=== PATIENT | male | born 1995 | race Caucasian/White ===

== ENCOUNTER → 2017-08-20 | Day surgery (SDC) | payer BC ==
[~2017-08-20] VITALS: Ht 170.2 cm; Wt 57.0 kg
[~2017-08-20] MED LIST: AMPICILLIN/SULBAC 3 GM/NS 100 ML IV PRN; BACITRACIN TOP OINT 15 GM TUBE ONE; CHLORHEXIDINE GLUCONATE 2 % 1 PACK (2 CLOTHS) TOPICAL PRN; DEXAMETHASONE SOD PHOS 4 MG/ML VIAL ONE; FAMOTIDINE 20 MG/2 ML VIAL ONE; INSULIN HUMAN REGULAR 1,000 UNITS/10 ML VIAL SQ PRN; LACTATED RINGER'S 1000 ML INJ 1,000 ML IV ONE; LACTATED RINGER'S 1000 ML IV PRN; LIDOCAINE 0.5%/EPINEPHrine 1:200,000 SOLN 50 ML VIAL ONE; MEPERIDINE HCL 25 MG/ML VIAL ONE; METOPROLOL TARTRATE 25 MG TAB PO PRN; MICROFIBRILLAR COLLAGEN HEMOSTAT 1 GM PKT ONE; MIDAZOLAM HCL 2 MG/2 ML VIAL ONE; MORPHINE SULFATE 4 MG/ML INJ ONE; OXYMETAZOLINE HCL 0.05% 15 ML NASAL SPRAY ONE; POVIDONE IODINE 5% (ANTISEPSIS KIT) 4 APPLICATIONS EACH NARE PRN; PROPOFOL 200 MG/20 ML AMP IV ONE; ROCURONIUM INJ 50 MG/5 ML SYRINGE IV PUSH ONE; SODIUM CHLORID 0.9% 500 ML IV PRN; SUGAMMADEX SODIUM 200 MG/2 ML VIAL IV PUSH ONE; fentaNYL CITRATE 250 MCG/5 ML AMP ONE
[2017-08-20 09:45] VITALS: PULSE 83
[2017-08-20 11:35] VITALS: BP 139/77; PULSE 74; RESP 16; TEMP 98; O2SAT 98
--- NOTE | 2017-08-30 11:49 | MP ---
cc: FRANCISCO JAVIER HERNANDEZ M.D. DATE OF SURGERY: 08/20/[address] Francisco Javier Hernandez. PREOPERATIVE DIAGNOSIS 1. Adenotonsillar hypertrophy. 2. Chronic tonsillitis. 3. Nasal airway obstruction. 4. Nasal septal deviation. 5. Hypertrophy of inferior turbinates. POSTOPERATIVE DIAGNOSIS 1. Adenotonsillar hypertrophy. 2. Chronic tonsillitis. 3. Nasal airway obstruction. 4. Nasal septal deviation. 5. Hypertrophy of inferior turbinates. OPERATION PERFORMED 1. Open repair nasal septal fracture. 2. Bilateral submucosal resection of inferior turbinates. 3. Adenotonsillectomy. INDICATIONS The indications are documented in the history and physical. DESCRIPTION OF OPERATION The patient was taken to OR #2 and placed in the supine position. Following induction of general anesthesia and intubation the nose was packed bilaterally with cotton pledgets saturated in 0.05% oxymetazoline. The nasal septum and inferior turbinates were injected with a total of 10 mL of 1% Xylocaine with epinephrine 1:100,000. He was then prepped and draped for surgery. The nasal packing was removed and a hemitransfixion incision was made in the left nasal vestibule. Through this incision the mucosa of septum was elevated bilaterally as far as the junction of the bony cartilaginous septum. This revealed the quadrangular cartilage which showed evidence of old long healed nasal septal fracture. There was extreme deviation of septum bilaterally due to comminuted fracture segments. A cumulative area of 2 x 2.5 was removed from the quadrangular cartilage preserving 1.5 cm dorsal and caudal cartilaginous struts. The mucosa was then elevated from the bony septum and the maxillary crest and these were removed using Mariel forceps and a 6 mm [place] chisel. The incision was then closed using a running suture of 4-0 chromic and the mucosal layers of septum were approximated to each other with a quilting stitch of 4-0 plain gut. The inferior turbinates were then fractured out medially and stab incisions were opened along their inferior surfaces and through these incisions the submucosal soft tissue was reduced using a curet and preserving the conchal bone. The incisions were then cauterized using suction Bovie at 35 brown. The remnants of the inferior turbinates were then re-lateralized to the lateral nasal wall. The nose was packed with 5.5 cm Rapid Rhino packs and each one was inflated with 5 mL of air. The table was then turned 90 degrees and a shoulder roll and a McIvor mouth gag were put in place. There was observed extreme hypertrophy of grossly inflamed and sclerotic tonsils. These were removed using the ArthroCare Coblator technique. Numerous sites of venous and arterial bleeding were cauterized using the bipolar cautery and the monopolar cautery. The tonsillar fossa were packed for about five minutes using tonsil sponge packs saturated in oxymetazoline. When these were removed the tonsil fossa were then filled with Avitene microfibrils. The adenoids were removed using the suction Bovie at 45 brown. The stomach was aspirated of several cc's of cloudy gastric contents using a #18 Peebles sump NG tube, and when this was completed the mouth gag was removed and the procedure was terminated. The patient was reversed from anesthesia and taken to Recovery in good condition. There were no complications. Blood loss was 100 mL. MD JORJE Brady/NIMESH /7:32 AM /11:35 AM
== END | disposition home or self-care (01) ==
LOC: PHSDC 06:27
PROVIDERS: ATTEND Otolaryngology
DX: J35.3 Hypertrophy of tonsils with hypertrophy of adenoids (principal); J35.01 Chronic tonsillitis; J34.2 Deviated nasal septum; J34.3 Hypertrophy of nasal turbinates
CPT/HCPCS: 00170; 30140; 30520; 42821; 88304; J0295; J1100; J2175; J2250; J2270; J3010; J7120

== ENCOUNTER 2018-04-13 13:49 | Emergency (ER) | payer BC, OTHER ==
[2018-04-13 13:54] VITALS: BP 126/82; PULSE 78; RESP 16; TEMP 98.3; O2SAT 99
[2018-04-13] MEDS ORDERED: SERT-132 PO (14:01)
[2018-04-13] MEDS ORDERED: DOXE25CA2 PO (14:01)
[2018-04-13] MEDS ORDERED: TETANUS/DIPHTHERIA TOXOID ADULT 0.5 ML VIAL IM ONE (14:30)
--- NOTE | 2018-04-13 14:38 | PD ---
HPI Chief Complaint: Laceration/Skin Injury Time Seen by Provider: 14:03 Travel History International Travel<30 days: No Contact w/Intl Traveler<30days: No Traveled to known affect area: No History of Present Illness HPI 22-year-old male with superficial laceration to the right hand. 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 There was minimal bleeding. Denies altered sensation or decreased range of motion of the fingers. He has mild pain at the site of the laceration. Severity is mild. No aggravating or alleviating factors. PFSH Past Medical History Cancer: No Cardiovascular Problems: No Diabetes: No Endocrine: No Genitourinary: No Hepatitis: No Hiatal Hernia: No Immune Disorder: No Musculoskeletal: No Neurologic: No Psychiatric: No Reproductive: No Respiratory: No Thyroid Disease: No Past Surgical History AICD: No Joint Replacement: No Pacemaker: No Social History Alcohol Use: No Tobacco Use: No Substance Use: No Allergies-Medications (Allergen,Severity, Reaction): Coded Allergies: No Known Allergies (Verified Adverse Reaction, Unknown, 04/13/18) Reported Meds & Prescriptions Reported Meds & Active Scripts Active Reported Doxepin (Doxepin HCl) 25 Mg Cap 25 Mg PO HS Sertraline (Sertraline HCl) 50 Mg Tab 50 Mg PO DAILY Review of Systems Except as stated in HPI: all other systems reviewed are Neg General / Constitutional: No: Fever Physical Exam Narrative GENERAL: Alert and well-appearing 22-year-old male SKIN: Warm and dry. HEAD: Normocephalic. EYES: No injection or drainage. NECK: Supple RESPIRATORY: No respiratory distress GASTROINTESTINAL: nondistended. MUSCULOSKELETAL: No cyanosis, or edema. Right hand: Superficial 1 cm laceration with wound edges well approximated. No active bleeding. Able to flex and extend all fingers. Normal sensation with sharp dull discrimination. Brisk cap refill. Data Data Last Documented VS Vital Signs Date Time Temp Pulse Resp B/P (MAP) Pulse Ox O2 Delivery O2 Flow Rate FiO2 04/13/18 13:54 98.3 78 16 126/82 (97) 99 Orders Orders Tetanus/Diphtheria Tox Adult (Tetanus/Di (04/13/18 14:30) MDM Medical Decision Making Medical Screen Exam Complete: Yes Emergency Medical Condition: Yes Differential Diagnosis Finger laceration, abrasion, tendon injury likely Narrative Course 22-year-old male here with a superficial wound to the right hand. No tendon or vascular injury suspected. This wound does not require sutures. Wound care discussed. Diagnosis Primary Impression: Laceration of hand Qualified Codes: S61.411A - Laceration without foreign body of right hand, initial encounter Referrals: Primary Care Physician Additional Instructions: Cleanse the area daily with soap and water. Cover with a clean dry dressing. Do not submerge the wound in dirty water Disposition: 01 DISCHARGE HOME Condition: Stable Elizabeth Mccallum April 13, 2018 14:38
== END 2018-04-13 14:53 | disposition home or self-care (01) ==
LOC: PHEFT 13:49
DX: S61.411A Laceration without foreign body of right hand, initial encounter (principal); W26.0XXA Contact with knife, initial encounter; Z23 Encounter for immunization
CPT/HCPCS: 90471; 90714